=== PATIENT | female | born 1955 | race Caucasian/White ===

== ENCOUNTER 2020-01-16 16:23 | Emergency (ER) | payer MEDICARE ==
[2020-01-16 16:31] VITALS: TEMP 97.8
[2020-01-16] MEDS ORDERED: MORPHINE SULFATE 4 MG/ML SYRINGE IVP STA (17:21)
--- NOTE | 2020-01-16 17:31 | ED ---
Back Pain HPI - General Chief Complaint: Back Pain/Injury Stated Complaint: Back pain Time Seen by Provider: 01/16/20 16:40 Source: patient Limitations: no limitations - History of Present Illness Initial Comments: 64-year-old female presenting today for chief complaint of left sided low back pain. Patient states she took a lot of laxitives yesterday and has to get up and down to go to the toilet on numerous occasions, patient states she did so because she was constipated for the past 3 days prior to that. Patient denies current constipation, abdominal pain or bloody stools. She states she developed--left sided low back pain, she states is feels like a spasm coming and going. Is sharp. Increases with movement/twisting. Denies radiation. Denies Coolness/pallor or pain of the legs. Denies AAA hx. Denies kidney stone history. Denies fevers denies IV drug use denies history of cancer denies loss of bowel bladder control urinary retention loss of sensation or weakness of th LE b/l. Denies hematuria, or urinary changed. Patient denies nausea, vomiting or chest pain. Upon arrival patient appears nontoxic, at time grabs back in pain - Related Data Previous Rx's Medication Instructions Recorded Cyclobenzaprine [Flexeril] 10 mg PO BID PRN 5 Days #10 tab 01/16/20 Allergies Allergy/AdvReac Type Severity Reaction Status Date / Time No Known Allergies Allergy Verified 01/16/20 16:31 Review of Systems ROS Statement: Those systems with pertinent positive or pertinent negative responses have been documented in the HPI. ROS Other: All systems not noted in ROS Statement are negative. Past Medical History Past Medical History: Coronary Artery Disease (CAD), Diabetes Mellitus, Hypertension, Myocardial Infarction (ND) History of Any Multi-Drug Resistant Organisms: None Reported Past Surgical History: Heart Catheterization, Heart Catheterization With Stent Past Psychological History: No Psychological Hx Reported Smoking Status: Never smoker Past Alcohol Use History: None Reported Past Drug Use History: None Reported General Exam - General Exam Comments Initial Comments: General: The patient is awake and alert, in no distress, and does not appear acutely ill. Eye: Pupils are equal, round and reactive to light, extra-ocular movements are intact. No nystagmus. There is normal conjunctiva bilaterally. No signs of icterus. Ears, nose, mouth and throat: There are moist mucous membranes and no oral lesions. Neck: The neck is supple, there is no tenderness or JVD. Cardiovascular: There is a regular rate and rhythm. No murmur, rub or gallop is appreciated. Respiratory: Lungs are clear to auscultation, respirations are non-labored, breath sounds are equal. No wheezes, stridor, rales, or rhonchi. Gastrointestinal: Soft, non-distended, non-tender abdomen without masses or organomegaly noted. There is no rebound or guarding present. No CVA tenderness. Musculoskeletal: Normal inspection of the back, no midline tenderness to palpation of the cervical thoracic or lumbar spine. There is palpable muscle spasm in the left lower back--patient yelps in pain when area palpated. No rashes. Normal ROM, no tenderness. Strength 5/5 of the LE equal in comparison b/l. Sensation intact of the LE intact b/l including the saddle region. Radial and DP pulses equal bilaterally 2+. Ambulatory. (-) SLR b/l. Normal GIA-normal tone. Neurological: A&O x 3. CN II-XII intact grossly, There are no obvious motor or sensory deficits. Coordination appears grossly intact. Speech is normal. Skin: Skin is warm and dry and no rashes or lesions are noted. Psychiatric: Cooperative, appropriate mood & affect, normal judgment. Limitations: no limitations Course Vital Signs 01/16/20 01/16/20 16:25 19:13 Temperature 97.8 F Pulse Rate 85 66 Respiratory 20 18 Rate Blood Pressure 189/91 177/80 O2 Sat by Pulse 100 98 Oximetry Medical Decision Making - Medical Decision Making 64-year-old male presenting today for chief complaint left lower back pain, hx of getting on and off toilet numerous times day prior. feel spasms. appears muscular. given colicky nature cannot rule out stone. CT wo contrast no stone. No blood in urine. Patient neurovascularly intact. No clinical findings suggestive of cauda equina, no midline tenderness. Some improvement with valium/pain meds. Will be discharged with muscle relaxer pcp f/u. Return parameters discussed--patient discharged appearing well. - Lab Data Result diagrams: 01/16/20 17:25 01/16/20 17:25 Lab Results 01/16/20 01/16/20 01/16/20 Range/Units 17:25 17:25 19:00 WBC 5.2 (3.8-10.6) k/uL RBC 4.30 (3.80-5.40) m/uL Hgb 13.4 (11.4-16.0) gm/dL Hct 40.8 (34.0-46.0) % MCV 94.8 (80.0-100.0) fL MCH 31.2 (25.0-35.0) pg MCHC 32.9 (31.0-37.0) g/dL RDW 14.2 (11.5-15.5) % Plt Count 154 (150-450) k/uL Neutrophils % 70 % Lymphocytes % 19 % Monocytes % 8 % Eosinophils % 1 % Basophils % 0 % Neutrophils # 3.7 (1.3-7.7) k/uL Lymphocytes # 1.0 (1.0-4.8) k/uL Monocytes # 0.4 (0-1.0) k/uL Eosinophils # 0.0 (0-0.7) k/uL Basophils # 0.0 (0-0.2) k/uL Sodium 139 (137-145) mmol/L Potassium 4.5 (3.5-5.1) mmol/L Chloride 105 (98-107) mmol/L Carbon Dioxide 26 (22-30) mmol/L Anion Gap 8 mmol/L BUN 16 (7-17) mg/dL Creatinine 1.00 (0.52-1.04) mg/dL Est GFR (CKD-EPI)AfAm 70 (>60 ml/min/1.73 sqM) Est GFR (CKD-EPI)NonAf 61 (>60 ml/min/1.73 sqM) Glucose 121 H (74-99) mg/dL Calcium 10.0 (8.4-10.2) mg/dL Total Bilirubin 1.0 (0.2-1.3) mg/dL AST 44 H (14-36) U/L ALT 27 (4-34) U/L Alkaline Phosphatase 101 (38-126) U/L Total Protein 7.5 (6.3-8.2) g/dL Albumin 4.8 (3.5-5.0) g/dL Urine Color Yellow Urine Appearance Clear (Clear) Urine pH 5.5 (5.0-8.0) Ur Specific [place] 1.024 (1.001-1.035) Urine Protein Negative (Negative) Urine Glucose (UA) Negative (Negative) Urine Ketones Negative (Negative) Urine Blood Negative (Negative) Urine Nitrite Negative (Negative) Urine Bilirubin Negative (Negative) Urine Urobilinogen <2.0 (<2.0) mg/dL Ur Leukocyte Esterase Negative (Negative) Disposition Clinical Impression: Low back pain, Low back strain Disposition: HOME SELF-CARE Condition: Good Instructions (If sedation given, give patient instructions): Acute Low Back Pain (ED) Additional Instructions: Please use medication as discussed. Please follow-up with family doctor in the next 2 days. Please return to emergency room if the symptoms increase or worsen or for any other concerns. Prescriptions: Cyclobenzaprine [Flexeril] 10 mg PO BID PRN 5 Days #10 tab PRN Reason: Muscle Spasm Is patient prescribed a controlled substance at d/c from ED?: No Referrals: Tyson Vasquez MD [Primary Care Provider] - 1-2 days Time of Disposition: 19:39
[2020-01-16 17:36] LABS: Basophils % (A) 0 %; Eosinophils % (A) 1 %; HCT 40.8 % (34.0-46.0); HGB 13.4 gm/dL (11.4-16.0); Lymphocytes % (A) 19 %; MCH 31.2 pg (25.0-35.0); MCHC 32.9 g/dL (31.0-37.0); MCV 94.8 fL (80.0-100.0); Mean Platelet Volume 8.3; Monocytes # (A) 0.4 k/uL (0-1.0); Monocytes % (A) 8 %; Neutrophils # (A) 3.7 k/uL (1.3-7.7); Neutrophils % (A) 70 %; Platelet Count 154 k/uL (150-450); RDW 14.2 % (11.5-15.5); WBC 5.2 k/uL (3.8-10.6)
[2020-01-16 17:46] LABS: Albumin 4.8 g/dL (3.5-5.0); Potassium 4.5 mmol/L (3.5-5.1); Total Protein 7.5 g/dL (6.3-8.2)
--- NOTE | 2020-01-16 18:20 | CT ---
EXAMINATION TYPE: CT abdomen pelvis wo con DATE OF EXAM: 01/16/2020 HISTORY: Left flank pain. CT DLP: 956.2 mGycm. Automated Exposure Control for Dose Reduction was Utilized. TECHNIQUE: CT scan of the abdomen and pelvis is performed without oral or IV contrast. COMPARISON: NONE FINDINGS: Within the limitations of a non-contrast study, the following observations are made. LUNG BASES: Partial visualization of bilateral breast implants. Visualized portion of left breast imp lant is smaller with infolding, cannot exclude intracapsular rupture, correlate clinically. At least moderate three-vessel coronary artery calcification is present which is noted marked of underlying co ronary artery disease. Calcification level of mitral valve is seen. LIVER/GB: Gallbladder not seen and presumed surgically absent. PANCREAS: No significant abnormality is seen. SPLEEN: No significant abnormality is seen. ADRENALS: No significant abnormality is seen. KIDNEYS: No renal calculi or hydronephrosis noted bilaterally. Some cortical scarring anteriorly lowe r pole of the left kidney noted. No intraluminal calculi in urinary bladder. BOWEL: Suboptimal evaluation of bowel without enteric contrast. Surgical changes from gastric bypass procedure noted at the gastric region. No suspicious small or large bowel dilatation. Occasional dive rticula proximal sigmoid colon without CT evidence for acute diverticulitis. GENITAL ORGANS: Anteverted uterus. Tubal ligation clips near junction of fallopian tubes with uterus. Ovaries normal in size. LYMPH NODES: No greater than 1cm abdominal or pelvic lymph nodes are appreciated. OSSEOUS STRUCTURES: Slight scoliotic curvature. Moderate to severe multilevel spurring in the thoraco lumbar spine. Posterior interpedicular rods and screws transfix L4-L5 level. Artificial disc material at this level. [id number] multilevel disc space narrowing posterior spurring effaces the anter ior thecal sac T12-L1 through the L2-L3 levels. Moderate axial joint space loss and spurring of both hips. OTHER: Moderate calcified plaque of the abdominal aorta extends into iliac branch vessels. Soft tiss ue density from umbilicus to rectus level presumed scar from prior surgery. IMPRESSION: No renal stones or hydronephrosis is seen bilaterally. No suspicious acute finding identi fied to account for patient's symptoms of left-sided flank pain.
[2020-01-16] MEDS ORDERED: HYDROmorphone 0.5 MG/0.5 ML SYRINGE IM STA (18:39)
[2020-01-16] MEDS ORDERED: DIAZEPAM 2 MG TAB PO STA (18:39)
[2020-01-16] MEDS ORDERED: HYDROmorphone 0.5 MG/0.5 ML SYRINGE IVP STA (19:09)
[2020-01-16 19:17] VITALS: BP 177/80; PULSE 66; RESP 18
[2020-01-16 19:33] LABS: Appearance,Urine Clear (Clear); Bilirubin,Urine Negative (Negative); Blood,Urine Negative (Negative); Color,Urine Yellow; Glucose,Urine (UA) Negative (Negative); Ketones,Urine Negative (Negative); Leukocyte Esterase,Urine Negative (Negative); Nitrite,Urine Negative (Negative); PH, Urine 5.5 (5.0-8.0); Protein,Urine Negative (Negative); Specific Gravity,Urine 1.024 (1.001-1.035); Urobilinogen,Urine <2.0 mg/dL (<2.0)
[2020-01-16] MEDS ORDERED: CYCLOBENZAPRINE 10MG STARTER 3 TAB BTL PO STA (20:04)
== END 2020-01-16 20:16 | disposition home or self-care (01) ==
LOC: EC 16:23
DX: S39.012A Strain of muscle, fascia and tendon of lower back, initial encounter (principal); I25.10 Atherosclerotic heart disease of native coronary artery without angina pectoris; I25.2 Old myocardial infarction; E11.9 Type 2 diabetes mellitus without complications; I10 Essential (primary) hypertension; Z95.5 Presence of coronary angioplasty implant and graft; X58.XXXA Exposure to other specified factors, initial encounter
CPT/HCPCS: 36415; 80053; 85025; 81003; 74176; 99284; 96374; 96375; J2270; J1170

== ENCOUNTER → 2023-04-15 | Outpatient (CLI) | payer MEDICARE ==
--- NOTE | 2023-04-15 15:30 | US ---
EXAMINATION TYPE: US carotid duplex BILAT DATE OF EXAM: 04/15/2023 COMPARISON: NONE CLINICAL INDICATION: Female, 67 years old with history of H53.9 UNSPECIFIED VISUAL DISTURBANCE; Histo ry of bilateral endarterectomy TECHNIQUE: Carotid duplex ultrasound examination. Indirect Doppler criteria was utilized. FINDINGS: EXAM MEASUREMENTS: RIGHT: Peak Systolic Velocity (PSV) cm/sec ----- Right CCA: 60.7 ----- Right ICA: 112.1 ----- Right ECA: 109.0 ICA/CCA ratio: 1.8 RIGHT: End Diastole cm/sec ----- Right CCA: 16.2 ----- Right ICA: 31.8 ----- Right ECA: 0.0 LEFT: Peak Systolic Velocity (PSV) cm/sec ----- Left CCA: 66.8 ----- Left ICA: 86.4 ----- Left ECA: 95.2 ICA/CCA ratio: 1.3 LEFT: End Diastole cm/sec ----- Left CCA: 20.6 ----- Left ICA: 29.2 ----- Left ECA: 11.7 VERTEBRALS (direction of flow): Right Vertebral: Antegrade Left Vertebral: Antegrade Rhythm: Normal Cnc Grinder notes: Scattered mild atherosclerotic change at the bifurcations. No significant stenosis IMPRESSION: No hemodynamically significant internal carotid artery stenosis on either side. Criteria for Assigning % of Stenosis / Diameter reduction (Estimation based on the indirect measurements of the internal carotid artery velocities (ICA PSV). 1. Normal (no stenosis)=ICA PSV < 125 cm/s: ratio < 2.0: ICA EDV<40 cm/s. 2. Less than 50% stenosis=ICA PSV < 125 cm/s: ratio < 2.0: ICA EDV<40 cm/s. 3. 50 to 69% stenosis=ICA PSV of 125 to 230 cm/s: ration 2.0 ? 4.0: ICA EDV 40-100 cm/s. 4. Greater than 70% stenosis to near occlusion= ICA PSV > 230 cm/s: ratio > 4.0: ICA EDV > 100 cm/s. 5. Near occlusion= ICA PSV velocities may be low or undetectable: variable ratio and ICA EDV. 6. Total occlusion=unable to detect flow.
== END | disposition home or self-care (01) ==
LOC: RADUSWWP 08:15
PROVIDERS: ATTEND Family Medicine
DX: H53.9 Unspecified visual disturbance (principal)
CPT/HCPCS: 93880

== ENCOUNTER → 2023-04-15 | Outpatient (CLI) | payer MEDICARE ==
--- NOTE | 2023-04-16 07:33 | MM ---
Reason for Exam: Screening (asymptomatic). Patient History: Menarche at age 16. First Full-Term at age 26. Hysterectomy at age 47. Postmenopausal. 1996, Bilateral Reduction. 1996, Bilateral Implants. Maternal aunt had breast cancer. Maternal aunt had breast cancer. Risk Values: Josee 5 year model risk: 1.4%. NCI Lifetime model risk: 5.1%. Tissue Density: There are scattered fibroglandular densities. Findings: Analyzed By CAD. Bilateral implants are noted with rupture of the left-sided implant. There is asymmetric density seen on the left MLO view. Additional views are recommended. Overall Assessment: Incomplete: need additional imaging evaluation, BI-RAD 0 Management: Diagnostic Mammogram of the left breast. . Patient should continue monthly self-breast exams. A clinical breast exam by your physician is recommended on an annual basis. This exam should not preclude additional follow-up of suspicious palpable abnormalities. Note on Josee scores and lifetime risk: 1. A Josee score greater than 3% is considered moderate risk. If this is the case, consider specialist referral to assess eligibility for a risk reducing agent. 2. If overall lifetime risk for the development of breast cancer is 20% or higher, the patient may qualify for future screening with alternating mammogram and breast MRI. Electronically signed and approved by: Harsha Castaneda M.D. Radiologis
== END | disposition home or self-care (01) ==
LOC: RADMAMWWP 08:11
PROVIDERS: ATTEND Family Medicine
DX: Z12.31 Encounter for screening mammogram for malignant neoplasm of breast (principal); Z78.0 Asymptomatic menopausal state; Z80.3 Family history of malignant neoplasm of breast
CPT/HCPCS: 77063; 77067

== ENCOUNTER → 2023-04-20 | Outpatient (CLI) | payer MEDICARE ==
--- NOTE | 2023-04-20 13:22 | MM ---
Reason for Exam: Additional evaluation requested from abnormal screening. Last screening mammogram was performed less than 1 month ago. Patient History: Menarche at age 16. First Full-Term at age 26. Hysterectomy at age 47. Postmenopausal. 1996, Bilateral Reduction. 1996, Bilateral Implants. Maternal aunt had breast cancer. Maternal aunt had breast cancer. Risk Values: Josee 5 year model risk: 1.4%. NCI Lifetime model risk: 5.1%. Prior Study Comparison: 04/15/2023 Bilateral MG 3D screening mammo w/cad, [facility]. Tissue Density: Left: There are scattered fibroglandular densities. Findings: Analyzed By CAD. Bilateral retropectoral implants. The implant on the left is collapsed. Bilateral nipple reduction surgeries indicated on the patient's history. There is contour indentation along the inferior aspect of the left breast likely also related to prior surgery. Bandlike opacity posterior central MLO view on the spot compression 3-D image becomes less defined than on the screening exam, suspect scar tissue. This month follow-up recommended. Overall Assessment: Probably benign, BI-RAD 3 Management: Diagnostic Mammogram of the left breast in 6 months. Results were given to the patient verbally at the time of exam. Patient should continue monthly self-breast exams. A clinical breast exam by your physician is recommended on an annual basis. This exam should not preclude additional follow-up of suspicious palpable abnormalities. Note on Josee scores and lifetime risk: 1. A Josee score greater than 3% is considered moderate risk. If this is the case, consider specialist referral to assess eligibility for a risk reducing agent. 2. If overall lifetime risk for the development of breast cancer is 20% or higher, the patient may qualify for future screening with alternating mammogram and breast MRI. Electronically signed and approved by: Monica Kearney M.D. Radiologist
== END | disposition home or self-care (01) ==
LOC: RADMAMWWP 12:50
PROVIDERS: ATTEND Family Medicine
DX: R92.8 Other abnormal and inconclusive findings on diagnostic imaging of breast (principal); Z78.0 Asymptomatic menopausal state; Z80.3 Family history of malignant neoplasm of breast
CPT/HCPCS: 77065; G0279; 77061

== ENCOUNTER → 2023-05-06 | Outpatient (CLI) | payer MEDICARE ==
[2023-05-06 14:12] LABS: African American GFR (CKD) 84 (>60 ml/min/1.73 sqM); Blood Urea Nitrogen 20 mg/dL (7-17); Non-African American GFR(CKD) 73 (>60 ml/min/1.73 sqM)
--- NOTE | 2023-05-06 14:41 | CT ---
EXAMINATION TYPE: CT chest w con CT DLP: 502 mGycm, Automated exposure control for dose reduction was used. DATE OF EXAM: 05/06/2023 2:32 PM COMPARISON: None available. CLINICAL INDICATION:Female, 67 years old with history of R91.1 SPN; PHH, Solitary Pulmonary Nodule TECHNIQUE: Multiple axial images were obtained through the chest following the administration of 100 cc of Isovue 300. . Coronal and sagittal reformats reviewed. FINDINGS: LUNGS/ PLEURA: No pleural effusion, pneumothorax, focal consolidation. Right upper lung scarring wit h superior perihilar consolidation and air bronchograms. No suspicious pulmonary nodules. AIRWAY: Patent and unremarkable.. HEART: Size within normal limits. No pericardial effusion. Moderate coronary artery calcifications. MEDIASTINUM: Right hilar 1.3 cm soft tissue lesion (series 3, image 21). VASCULATURE: No aortic aneurysm. MUSCULOSKELETAL: No acute osseous abnormalities. No aggressive osseous lesions. Findings compatible w ith DISH. SOFT TISSUES/LYMPH NODES: Bilateral breast implants with left breast implant intracapsular rupture. LOWER NECK: No significant findings. UPPER ABDOMEN: Postsurgical changes of the stomach. Post cholecystomy changes. IMPRESSION: Right suprahilar mediastinal 1.2 cm lesion with adjacent consolidation with air bronchograms and volu me loss. This may related to posttreatment scarring and/or primary lung malignancy. Correlation with prior imaging is recommended. Otherwise further evaluation with PET/CT is recommended.
== END | disposition home or self-care (01) ==
LOC: RADCTMAIN 13:15
PROVIDERS: ATTEND Family Medicine
DX: R91.8 Other nonspecific abnormal finding of lung field (principal)
CPT/HCPCS: 82565; 84520; 71260; 36415; Q9967

== ENCOUNTER → 2023-06-05 | Outpatient (CLI) | payer MEDICARE ==
--- NOTE | 2023-06-05 21:42 | PE ---
EXAMINATION TYPE: PET CT fusion skull to thigh DATE OF EXAM: 06/05/2023 CLINICAL INDICATION:Female, 68 years old with history of R91.1 SOLITARY PULMONARY NODULE; TECHNIQUE: Following the intravenous administration of mCi of F-18 FDG, whole body images are perfor med from the skull base to the midthigh. Images are reviewed on the computer in the coronal, axial, and sagittal planes. Reconstructed rotating images are created on independent workstation and review ed on the computer. A non-contrast CT is performed in conjunction with the PET scan. Glucose level 100 mg/dL CT DLP: mGycm, Automated exposure control for dose reduction was used. COMPARISON: CT None, PET/CT None, FINDINGS: Mediastinal SUV mean is . Hepatic parenchyma SUV mean is . SKULL BASE AND NECK: No suspicious radiotracer activity. CHEST, MEDIASTINUM, AND HILAR REGION: No suspicious radiotracer activity. ABDOMEN AND PELVIS: No suspicious radiotracer activity. MUSCULOSKELETAL STRUCTURES: No suspicious radiotracer activity. OTHER CT: IMPRESSION: No suspicious radiotracer activity. No priors were available. If a prior is made available, an addend um can be made to address providers area of concern.
== END | disposition home or self-care (01) ==
LOC: RADPETMAIN 09:06
PROVIDERS: ATTEND Internal Medicine Critical Care Medicine
DX: R91.1 Solitary pulmonary nodule (principal)
CPT/HCPCS: 78815; A9552

== ENCOUNTER → 2023-07-02 | Outpatient (CLI) | payer MEDICARE ==
[2023-07-02 13:26] VITALS: BP 128/75; PULSE 66; RESP 18; TEMP 97.6
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
== END ==
LOC: WWCWWP 13:02
PROVIDERS: ATTEND Surgery
DX: T85.49XA Other mechanical complication of breast prosthesis and implant, initial encounter (principal); N60.12 Diffuse cystic mastopathy of left breast; I10 Essential (primary) hypertension; I25.10 Atherosclerotic heart disease of native coronary artery without angina pectoris; E11.9 Type 2 diabetes mellitus without complications; I25.2 Old myocardial infarction; Z79.899 Other long term (current) drug therapy; Z87.891 Personal history of nicotine dependence

== ENCOUNTER → 2024-05-31 | Outpatient (CLI) | payer MEDICARE ==
[2024-05-31 09:22] LABS: African American GFR (CKD) 60 (>60 ml/min/1.73 sqM); Blood Urea Nitrogen 17 mg/dL (7-17); Non-African American GFR(CKD) 52 (>60 ml/min/1.73 sqM)
--- NOTE | 2024-05-31 11:41 | CT ---
EXAMINATION TYPE: CT chest w con DATE OF EXAM: 05/31/2024 COMPARISON: 05/06/2023 HISTORY: LUNG CA F/U CT DLP: 595 mGycm Automated exposure control for dose reduction was used. CONTRAST: CT scan of the chest is performed with IV Contrast, patient injected with 80 mL of Isovue 300. FINDINGS: LUNGS: No pleural effusion, pneumothorax, focal consolidation. Right upper lung scarring with superio r perihilar consolidation and air bronchograms. No suspicious pulmonary nodules. MEDIASTINUM: There are no greater than 1 cm hilar or mediastinal lymph nodes. No pericardial effusi on is seen. Thoracic aorta is of normal caliber. The heart is not enlarged. UPPER ABDOMEN: No significant abnormality appreciated. OTHER: No additional significant abnormality is seen. IMPRESSION: No evidence for recurrent or residual disease. Postoperative scarring right upper lobe.
== END | disposition home or self-care (01) ==
LOC: RADCTMAIN 08:29
PROVIDERS: ATTEND Internal Medicine Critical Care Medicine
DX: R59.0 Localized enlarged lymph nodes
CPT/HCPCS: 36415; 71260; 82565; 84520

== ENCOUNTER → 2024-06-28 | Outpatient (CLI) | payer MEDICARE ==
--- NOTE | 2024-06-28 10:36 | US ---
EXAMINATION TYPE: US carotid duplex BILAT DATE OF EXAM: 06/28/2024 COMPARISON: US 04/15/2020. CLINICAL INDICATION: Female, 69 years old with history of R41.82 ALTERED MENTAL STATUS, UNSPECIFIED I 65.29OC; Stenosis, pt states bilateral endart TECHNIQUE: Grayscale, color Doppler and spectral Doppler evaluation of the bilateral carotid systems and vertebral arteries.Indirect Doppler criteria was utilized. FINDINGS: EXAM MEASUREMENTS: RIGHT: Peak Systolic Velocity (PSV) cm/sec ----- Right CCA: 83.4 ----- Right ICA: 94.1 ----- Right ECA: 196.6 ICA/CCA ratio: 1.1 RIGHT: End Diastole cm/sec ----- Right CCA: 17.1 ----- Right ICA: 27.0 ----- Right ECA: 13.0 LEFT: Peak Systolic Velocity (PSV) cm/sec ----- Left CCA: 89.7 ----- Left ICA: 88.8 ----- Left ECA: 130.2 ICA/CCA ratio: 1.0 LEFT: End Diastole cm/sec ----- Left CCA: 18.2 ----- Left ICA: 13.7 ----- Left ECA: 13.9 VERTEBRALS (direction of flow): Right Vertebral: Antegrade Left Vertebral: Antegrade Rhythm: Normal PIPE SETTER NOTES: Heterogeneous plaque bilaterally with elevated velocities bilateral ECA's Incidental finding right thyroid nodule= 1.5 x 1.0 cm IMPRESSION: Right: Less than 50% stenosis of the carotid bifurcation. Normal (no stenosis)=ICA PSV < 125 cm/s: ra mary grace < 2.0: ICA EDV<40 cm/s. Left: Less than 50% stenosis of the carotid bifurcation. Normal (no stenosis)=ICA PSV < 125 cm/s: rat io < 2.0: ICA EDV<40 cm/s. Incidental note made of a 1.5 cm right thyroid nodule. Criteria for Assigning % of Stenosis / Diameter reduction (Estimation based on the indirect measurements of the internal carotid artery velocities (ICA PSV). 1. Normal (no stenosis)=ICA PSV < 125 cm/s: ratio < 2.0: ICA EDV<40 cm/s. 2. Less than 50% stenosis=ICA PSV < 125 cm/s: ratio < 2.0: ICA EDV<40 cm/s. 3. 50 to 69% stenosis=ICA PSV of 125 to 230 cm/s: ration 2.0 ? 4.0: ICA EDV 40-100 cm/s. 4. Greater than 70% stenosis to near occlusion= ICA PSV > 230 cm/s: ratio > 4.0: ICA EDV > 100 cm/s. 5. Near occlusion= ICA PSV velocities may be low or undetectable: variable ratio and ICA EDV. 6. Total occlusion=unable to detect flow. [facility], , 06/28/2024 10:34 AM
== END | disposition home or self-care (01) ==
LOC: RADUSWWP 07:37
PROVIDERS: ATTEND Family Medicine
CPT/HCPCS: 93880

== ENCOUNTER → 2024-08-10 | Outpatient (CLI) | payer MEDICARE ==
--- NOTE | 2024-08-10 15:43 | US ---
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 FINDINGS: GLAND SIZE: Right Lobe: 4.9 x 1.3 x 1.8 cm Overall Parenchyma: homogeneous Left Lobe: 4.0 x 1.2 x 1.4 cm Overall Parenchyma: homogeneous Isthmus Thickness: 0.2 cm NODULES RIGHT: # of nodules measured on right: 2 1. 1.5 X 1.1 x 1.2 cm, lower lateral, solid or almost completely solid, hypoechoic nodule, which is wider than tall, with smooth margins, without echogenic foci. TR 4. Prior size: 1.5 x 1.0cm 2. 0.8 X 0.6 x 0.8 cm, upper mid, solid or almost completely solid, hypoechoic nodule, which is wid er than tall, with smooth margins, without echogenic foci. TR 4. Prior size: no previous LEFT: # of nodules measured on left: 0 ISTHMUS: # of nodules measured in the isthmus: 0 Bilateral neck scanned, no evidence of lymphadenopathy. IMPRESSION: There are 2 TR 4 right thyroid lobe nodules with one measuring 1.5 cm and the other measuring 0.8 cm. ACR TI-RADS LEVEL: TR-RADS 4 - Moderately Suspicious: Follow if > 1 cm, FNA if > 1.5 cm *Highest TI-RADS level nodule reported [facility], , 08/10/2024 3:41 PM
== END | disposition home or self-care (01) ==
LOC: RADUSWWP 14:49
PROVIDERS: ATTEND Family Medicine
DX: E04.2 Nontoxic multinodular goiter (principal)
CPT/HCPCS: 76536

== ENCOUNTER 2024-08-31 08:27 | Day surgery (SDC) | payer MEDICARE ==
[2024-08-31] MEDS: ALPRAZolam 0.25 MG TAB PO STA (08:41)
[2024-08-31 09:45] VITALS: RESP 16; TEMP 97.8
[2024-08-31 11:05] VITALS: BP 148/66; PULSE 54
--- NOTE | 2024-08-31 11:36 | US ---
EXAMINATION TYPE: US FNA thyroid first lesion DATE OF EXAM: 08/31/2024 10:13 AM COMPARISON: 08/10/2024 CLINICAL INDICATION:Female, 69 years old with history of E04.1 NONTOXIC SINGLE THYROID NODULE; , righ t thyroid lobe nodule. ATTENDING: Dr. Sterling Caba PROCEDURE: Informed consent was obtained. The risks and benefits of the procedure were discussed with the patien t. The site was marked. Timeout procedure was performed Ultrasound imaging demonstrates right thyroid lower lobe nodule. The patient was prepped, draped in the usual sterile fashion, and locally anesthetized with 1% lidoca ine. Five fine needle aspiration were then performed with a 25 gauge needle. Samples were sent to [facility] pathology department for further analysis. Patient tolerated the procedure without incident and wa s sent home in stable condition. IMPRESSION: Successful ultrasound guided fine needle aspiration [facility], , 08/31/2024 11:34 AM
== END 2024-08-31 10:25 | disposition home or self-care (01) ==
LOC: RADPROMAIN 08:27
PROVIDERS: ATTEND Family Medicine
DX: E04.1 Nontoxic single thyroid nodule (principal)
CPT/HCPCS: 10005; 88173; 88305